=== PATIENT | male | born 1945 | race Caucasian/White ===

== ENCOUNTER 2018-08-04 09:50 | Outpatient (REF) | payer MEDICARE, OTHER, SELFPAY ==
[2018-08-04 13:42] LABS: COMMENT (LAB VIEW ONLY) 61.27 mg/dL; Microalb ug/mg Crea 13.9 ug/mg Cr
== END 2018-08-04 10:10 ==
LOC: NCHCN 09:50
PROVIDERS: PCP Family Medicine; Visit Provider Family Medicine
DX: E11.9 Type 2 diabetes mellitus without complications (principal)
CPT/HCPCS: 82043; 82570

== ENCOUNTER → 2019-05-17 12:29 | Outpatient (BNVA) | payer MEDICARE, OTHER, SELFPAY | PROVIDERS: PCP Family Medicine; Visit Provider Psychiatry & Neurology Neurology | DX: S84.12XA Injury of peroneal nerve at lower leg level, left leg, initial encounter (principal); X58.XXXA Exposure to other specified factors, initial encounter; M21.372 Foot drop, left foot; I10 Essential (primary) hypertension; E11.9 Type 2 diabetes mellitus without complications; Z79.84 Long term (current) use of oral hypoglycemic drugs | CPT/HCPCS: 99204; 99215 ==

== ENCOUNTER 2020-01-18 12:27 | Outpatient (REF) | payer MEDICARE, OTHER, SELFPAY ==
[2020-01-18 15:22] LABS: Anion Gap 11.9 mmol/L (3-11); BUN 15 mg/dL (7-18); CO2 23.1 mmol/L (21.0-32.0); CREATININE 1.08 mg/dL (0.70-1.30); Calcium 8.8 mg/dL (8.5-10.1); Chloride 106 mmol/L (98-107); Glucose 221 mg/dL (74-106); Magnesium 1.8 mg/dL (1.8-2.4); Potassium 4.4 mmol/L (3.5-5.1); Sodium 141 mmol/L (136-145)
== END 2020-01-18 12:47 ==
LOC: NCHCN 12:27
PROVIDERS: PCP Family Medicine; Visit Provider Family Medicine
DX: E11.9 Type 2 diabetes mellitus without complications (principal); I10 Essential (primary) hypertension; I25.10 Atherosclerotic heart disease of native coronary artery without angina pectoris
CPT/HCPCS: 80048; 83735

== ENCOUNTER 2021-09-13 15:13 | Outpatient (REF) | payer MEDICARE, SELFPAY ==
[2021-09-13 16:16] LABS: Anion Gap 12.8 mmol/L (3-11); BUN 25 mg/dL (7-18); CO2 20.2 mmol/L (21.0-32.0); Calcium 8.7 mg/dL (8.5-10.1); Chloride 107 mmol/L (98-107); Glucose 143 mg/dL (74-106); Potassium 4.3 mmol/L (3.5-5.1); Sodium 140 mmol/L (136-145)
[2021-09-13 16:21] LABS: Hemoglobin A1C 6.7 % (<5.7)
== END 2021-09-13 15:14 | disposition home or self-care (01) ==
LOC: NCHCN 15:13
PROVIDERS: PCP Family Medicine; Visit Provider Family Medicine
DX: E11.9 Type 2 diabetes mellitus without complications (principal); I10 Essential (primary) hypertension
CPT/HCPCS: 80048; 83036

== ENCOUNTER 2022-09-08 14:55 | Outpatient (REF) | payer MEDICARE, OTHER, SELFPAY ==
[2022-09-08 15:06] LABS: Anion Gap 11.8 mmol/L (3-11); BUN 20 mg/dL (7-18); CO2 23.2 mmol/L (21.0-32.0); CREATININE 1.5 mg/dL (0.70-1.30); Calcium 8.7 mg/dL (8.5-10.1); Calculated LDL 45 mg/dL (<100); Chloride 101 mmol/L (98-107); Cholesterol 134 mg/dL (<200); Estimated GFR 48.25 (mL/min/1.73m2); HDL Cholesterol 47 mg/dL (40-60); Potassium 4.1 mmol/L (3.5-5.1); Sodium 136 mmol/L (136-145); Triglyceride 212 mg/dL (<150)
[2022-09-08 15:23] LABS: Glucose 559 mg/dL (74-106)
== END 2022-09-08 14:56 | disposition home or self-care (01) ==
LOC: NCHCN 14:55
PROVIDERS: PCP Family Medicine; Visit Provider Family Medicine
DX: E11.9 Type 2 diabetes mellitus without complications (principal); I25.10 Atherosclerotic heart disease of native coronary artery without angina pectoris; E78.5 Hyperlipidemia, unspecified
CPT/HCPCS: 80048; 80061

== ENCOUNTER 2022-12-09 19:54 | Outpatient (REF) | payer MEDICARE, OTHER, SELFPAY ==
[2022-12-09 16:25] LABS: Anion Gap 10.9 mmol/L (3-11); BUN 14 mg/dL (7-18); CO2 21.1 mmol/L (21.0-32.0); Chloride 108 mmol/L (98-107); Estimated GFR 78.49 (mL/min/1.73m2); Glucose 170 mg/dL (74-106); Potassium 3.9 mmol/L (3.5-5.1); Sodium 140 mmol/L (136-145)
== END 2022-12-09 19:55 | disposition home or self-care (01) ==
LOC: NCHCN 19:54
PROVIDERS: PCP Family Medicine; Visit Provider Family Medicine
DX: N28.9 Disorder of kidney and ureter, unspecified (principal)
CPT/HCPCS: 80048

== ENCOUNTER 2023-08-25 14:08 | Emergency (ER) | payer MEDICARE, OTHER, SELFPAY ==
[2023-08-25 14:13] VITALS: BP 145/98; PULSE 92; RESP 16; TEMP 38.1; O2SAT 95
--- NOTE | 2023-08-25 14:30 | DI.RAD_ITS ---
Exam(s) XR CHEST 2V PA LATERAL EXAM: XR CHEST 2V PA LATERAL CLINICAL HISTORY: cough, fever, left post lung wheeze TECHNIQUE: 2D digital imaging was performed. COMPARISON: CR CHEST 2 VIEWS PA,LAT from 12/19/2016 FINDINGS: HEART: Normal size. Coronary artery stent Aorta: Not dilated. PULMONARY VASCULATURE: Normal. LUNGS: Clear. PLEURAL SPACE: No pleural effusion or pneumothorax. BONE:Unremarkable for age. Soft tissues: Unremarkable. IMPRESSION: No acute abnormality. DATA REPOSITORY: RADIATION DOSE DELIVERED:
--- NOTE | 2023-08-25 14:36 | W.ED.GENAD ---
Discharge Plan Disposition Patient Disposition: Home Condition: Improving Discharge Details Chief Complaint: RespSymp Clinical Impression: Cough, Viral illness Primary Care Provider: Brian Cordero ED Provider: Lencho Leal Home Meds and New Rx's Prescriptions: No Action clopidogrel 75 mg tablet 75 mg PO DAILY acetaminophen [Tylenol Extra Strength] 500 MG tablet 500 mg PO PRN isosorbide mononitrate 60 MG tablet extended release 24 hr 60 mg PO DAILY omeprazole 40 MG capsule,delayed release(DR/EC) 40 mg PO DAILY@0730 Qty: 30 atorvastatin [Lipitor] 80 mg tablet 40 mg PO DAILY metformin 500 mg tablet extended release 24hr 850 mg PO BID Jardiance 10 mg tablet 10 mg PO DAILY naproxen sodium [Aleve] 220 mg capsule 220 mg PO BID PRN glipizide 2.5 mg tablet extended release 24hr 2.5 mg PO DAILY metoprolol succinate 50 mg tablet extended release 24 hr 25 mg PO DAILY sucralfate 1 GM tablet 1 gm PO AC & HS Qty: 120 1RF famotidine 40 MG tablet 40 mg PO HS nitroglycerin 0.4 MG tablet, sublingual 0.4 mg Sublingual PRN PRN aspirin 81 MG tablet,chewable 81 mg PO DAILY furosemide 20 MG tablet 20 mg PO PRN PRN Discharge Instructions Instructions: Viral Syndrome (ED), Acute Cough (ED) Additional Instructions: Follow-up closely with your primary care physician. Please return to the emergency department for worsening symptoms. Medical Decision Making 77-year-old male presents with cough over the last several days, fatigue and decreased p.o. intake, coughing so much that he was seeing spots/lights in his visual lópez that have not resolved. Does have nasal congestion and sinus pressure. Patient is alert oriented interactive nonfocal moving all extremities. Speaking full sentences normoxic however does have expiratory wheeze left posterior lung field consider pneumonia versus viral respiratory illness, likely component of viral sinusitis, lower suspicion for encephalitis encephalopathy PE ACS aortic pathology or pneumothorax. Screening x-ray, viral panel, trial of nebs and steroid as well as antipyretic. 16: 44 patient feeling better after medications. Home care instructions and return precautions given HPI General Date/Time Provider Initiated Documentation: 08/25/23 14:14. HPI Narrative: 77-year-old male presents with cough over the last several days, coughing so much that he was briefly seeing spots, denies visual or auditory hallucinations; has had some fatigue and decreased p.o. intake related to this illness. Denies chest pain nausea vomiting or diarrhea. Related Data Home Medications Medication Instructions Recorded Confirmed aspirin 81 mg chewable tablet 81 mg PO DAILY 12/19/16 05/17/19 famotidine 40 mg tablet 40 mg PO HS 12/19/16 05/17/19 furosemide 20 mg tablet 20 mg PO PRN PRN 12/19/16 05/17/19 nitroglycerin 0.4 mg sublingual 0.4 mg sublingual PRN PRN 12/19/16 05/17/19 tablet acetaminophen 500 mg tablet 500 mg PO PRN 02/13/17 05/17/19 (Tylenol Extra Strength) isosorbide mononitrate 60 mg 60 mg PO DAILY 02/13/17 05/17/19 tablet,extended release 24 hr sucralfate 1 gram tablet 1 gm PO AC & HS #120 tabs 02/24/17 05/17/19 omeprazole 40 mg capsule,delayed 40 mg PO DAILY@0730 ##30 03/06/17 05/17/19 release atorvastatin 80 mg tablet (Lipitor) 40 mg PO DAILY 03/18/19 05/17/19 empagliflozin 10 mg tablet 10 mg PO DAILY 03/18/19 05/17/19 (Jardiance) metformin 500 mg tablet,extended 850 mg PO BID 03/18/19 05/17/19 release 24hr (osmotic) clopidogrel 75 mg tablet 75 mg PO DAILY 05/17/19 05/17/19 glipizide 2.5 mg tablet, extended 2.5 mg PO DAILY 07/09/22 release 24 hr metoprolol succinate 50 mg 25 mg PO DAILY 07/09/22 tablet,extended release 24 hr naproxen sodium 220 mg capsule 220 mg PO BID PRN 07/09/22 (Aleve) Previous Rx's Medication Instructions Recorded sucralfate 1 gram tablet 1 gm PO AC & HS #120 tabs 02/24/17 Allergies Allergy/AdvReac Type Severity Reaction Status Date / Time No Known Allergies Allergy Unverified 08/25/23 14:18 General Stated Complaint: RespSymp NIXON: 3 Review of Systems Narrative: Review of Systems Constitutional: negative Eyes: negative ENT: negative Cardiovascular: negative Respiratory: Cough Gastrointestinal: negative : negative Musculoskeletal: negative Skin: negative Neurologic: negative Psych: negative PFSH All Active Problems (Updated 08/25/23 @ 16:45 by Lencho Lael MD) Viral illness (Acute) Cough (Acute) Left foot drop (Acute) Left peroneal nerve injury (Acute) Medical History (Updated 08/25/23 @ 16:45 by Lencho Leal MD) Tubulovillous adenoma (~01/2017) GERD (gastroesophageal reflux disease) Diverticulitis large intestine Hypertension DJD (degenerative joint disease) [place] (myocardial infarction) 2001 Hyperlipidemia Depression Anxiety CAD (coronary artery disease) Hearing impairment DM (diabetes mellitus) Tobacco chew use Surgical History S/P eye surgery bilateral at age 18 cardiac stent 2001 and 2014 EGD - IV Sedation (02/23/17) Colonoscopy - MAC (02/23/17) Social History Smoking/Tobacco Use Status: Current every day Smoking risk assessment performed?: Yes Alcohol Intake: current Drug use: Never Household members: spouse Number of Children: 5 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; Retired Construction/refuse and recycling worker Do you feel safe in your relationship?: Yes Additional Social history: to 4th (>41 years together) Exam Narrative Exam Narrative: Physical Examination General: alert, awake, cooperative, resting comfortably, no acute distress HEENT: normocephalic, atraumatic; PERRL, EOM intact, conjunctiva normal; no nasal discharge; moist mucous membranes, oral and pharyngeal mucosa normal, tolerating secretions Neck: supple, trachea midline; full ROM Chest: normal to inspection Respiratory: normal respiratory effort, speaking in full sentences, mild expiratory wheeze left posterior lung field, clear right lung lópez Cardiac: regular rate, regular rhythm, S1S2 intact, no murmurs rubs or gallops GI: abdomen soft, non-tender, non-distended; no palpable mass or hepatosplenomegaly Skin: no lesions, rashes or trauma appreciated Neuro: AAOx3, normal speech, moving all extremities Psych: Appropriate mood and affect Course Vital Signs Vital signs: Vital Signs Temperature 38.1 C H 08/25/23 14:13 Pulse 92 H 08/25/23 14:13 Respiratory Rate 16 08/25/23 14:13 Blood Pressure 145/98 H 08/25/23 14:13 Pulse Oximetry 95 08/25/23 14:13 Temperature 38.1 C H 08/25/23 14:13 Temperature Source Temporal Artery Scan 08/25/23 14:13 Pulse 92 H 08/25/23 14:13 Respiratory Rate 16 08/25/23 14:13 Respiratory Effort Normal, Non-Labored 08/25/23 14:18 Blood Pressure 145/98 H 08/25/23 14:13 Pulse Oximetry 95 08/25/23 14:13 Oxygen Delivery Method Room Air 08/25/23 14:13 Oxygen Flow Rate 0 08/25/23 14:13 PAWSS Have you Been Recently Intoxicated or Drunk Within the Last 30 days?: No Have you Ever Experienced Previous Episodes of Alcohol Withdrawal?: No Have you ever Experienced Withdrawal Seizures?: No Have you ever Experienced Delirium Tremens(DT)s?: No Have you ever undergone Alcohol Rehabilitation Treatment (i.e, inpt ot outpatient treatment programs)?: No Have you ever Experienced Blackouts?: No Have you ever Combined Alcohol with other Downers within the last 90 days?: No Have you ever Combined Alcohol with any other Substance of Abuse during the last 90 days?: No Result: 0
[2023-08-25] MEDS: Acetaminophen 325 MG TAB 650 MG PO (14:57)
[2023-08-25 14:58] VITALS: PULSE 92; RESP 16; O2SAT 95
[2023-08-25] MEDS: Albuterol 2.5 MG/3 ML INH SOLN VIAL UPD (14:58)
[2023-08-25] MEDS: Dexamethasone 10 MG/ML VIAL PO (14:58)
[2023-08-25 16:54] VITALS: BP 154/52; PULSE 100; RESP 16; TEMP 37.1; TEMP 37.2; O2SAT 95
[2023-08-25 17:09] VITALS: PULSE 100; RESP 16; TEMP 37.2; O2SAT 95
== END 2023-08-25 16:56 | disposition home or self-care (01) ==
PROVIDERS: Emergency Provider Emergency Medicine; PCP Family Medicine
DX: R05.9 Cough, unspecified (principal); B34.9 Viral infection, unspecified
CPT/HCPCS: 87426; 94640; 99283; 71046; 99284; J1100; J7613

== ENCOUNTER 2023-10-12 13:05 | Outpatient (REF) | payer MEDICARE, OTHER, SELFPAY ==
[2023-10-12 15:48] LABS: Hemoglobin A1C 7.4 % (<5.7)
[2023-10-12 15:56] LABS: Anion Gap 12.3 mmol/L (3-11); BUN 19 mg/dL (7-18); CO2 24.7 mmol/L (21.0-32.0); CREATININE 1.2 mg/dL (0.70-1.30); Calcium 9.4 mg/dL (8.5-10.1); Chloride 104 mmol/L (98-107); Estimated GFR 62.67 (mL/min/1.73m2); Glucose 148 mg/dL (74-106); Sodium 141 mmol/L (136-145)
== END 2023-10-12 13:06 | disposition home or self-care (01) ==
LOC: NCHCN 13:05
PROVIDERS: PCP Family Medicine; Visit Provider Family Medicine
DX: E11.9 Type 2 diabetes mellitus without complications (principal)
CPT/HCPCS: 80048; 83036

== ENCOUNTER 2024-04-13 12:00 | Outpatient (REF) | payer MEDICARE, OTHER, SELFPAY ==
[2024-04-14 20:32] LABS: COMMENT (LAB VIEW ONLY) 70.41 mg/dL; Microalb ug/mg Crea 20.7 ug/mg Cr
== END 2024-04-13 12:01 | disposition home or self-care (01) ==
LOC: NCHCN 12:00
PROVIDERS: PCP Family Medicine; Visit Provider Student in an Organized Health Care Education/Training Program
DX: E11.9 Type 2 diabetes mellitus without complications (principal)
CPT/HCPCS: 82043; 82570

== ENCOUNTER 2025-01-02 13:59 | Outpatient (REF) | payer MEDICARE, OTHER, SELFPAY ==
[2025-01-02 16:05] LABS: Anion Gap 14.8 mmol/L (3-11); BUN 21 mg/dL (7-18); CO2 19.2 mmol/L (21.0-32.0); CREATININE 1.1 mg/dL (0.70-1.30); Chloride 106 mmol/L (98-107); Estimated GFR 68.71 (mL/min/1.73m2); Glucose 211 mg/dL (74-106); Potassium 3.9 mmol/L (3.5-5.1); Sodium 140 mmol/L (136-145)
== END 2025-01-02 14:00 | disposition home or self-care (01) ==
LOC: NCHCN 13:59
PROVIDERS: PCP Student in an Organized Health Care Education/Training Program; Visit Provider Student in an Organized Health Care Education/Training Program
DX: E11.9 Type 2 diabetes mellitus without complications (principal)
CPT/HCPCS: 80048

== ENCOUNTER 2025-01-13 00:10 | Outpatient (CLI) | payer MEDICARE, OTHER, SELFPAY ==
--- NOTE | 2025-01-13 09:00 | DI.CT_ITS ---
Exam(s) CT CHEST WO EXAM: CT CHEST WO CLINICAL HISTORY: Multiple lung nodules, R91.8; significant smoking history > 20 years ago. TECHNIQUE: Multi planar reconstructions were performed. CONTRAST MATERIAL: None COMPARISON: CT CT CHEST/ABD/PELVIS W/CONTRAST from 03/25/2024 FINDINGS: CHEST: LUNGS: There is an unchanged 2-3 mm calcified granuloma in the right upper lobe. Two other small sim ilar size nodules in the right upper lobe also remain unchanged.. Another small 2-3 mm nodule in the right middle lobe is unchanged. No new significant focal right lung findings. No pleural effusions . In the opposite-left lung there is a peripherally located left upper lobe nodule measuring 3 mm which is unchanged. There are no new left lung nodules. No infiltrates. No pleural effusions. There are no significant focal findings in trachea and mainstem bronchi. MEDIASTINUM: There is no obvious hilar nor mediastinal adenopathy. Visualized thyroid unremarkable.No obvious axillary adenopathy CARDIAC: Heart size is normal. There is no pericardial effusion.Caliber of the thoracic aorta is wit hin normal limits. VISUALIZED UPPER ABDOMEN:Cholelithiasis evident. There is a E 1.5 cm gallstone noted in the gallblad alhaji neck region. Gallbladder is not overly distended and is not edematous and there is no pericholec ystic fluid. CBD is not dilated. There are no adrenal masses. No splenomegaly. OSSEOUS: No significant osseous lesions.No fractures.. IMPRESSION: 1. Stable appearance of the multiple small benign-appearing nodules in the right lung and solitary 3 millimeter nodule in the left lung. There are no new nodules, infiltrates, nor pleural effusions and there is no intrathoracic adenopathy. 2. Cholelithiasis incidentally noted. RADIATION DOSE DELIVERED: 204.35mGy.cm Total DLP DATA REPOSITORY: All CT scans at this facility are submitted to the National Radiology Data Registry (NRDR) Dose Index Registry (DIR) with the [employer] ([employer]). RADIATION OPTIMIZATION: All CT scans at this facility use at least one of these dose optimization te chniques: automated exposure control; mA and/or kV adjustment per patient size (includes targeted exa ms where dose is matched to clinical indication); or iterative reconstruction.
== END 2025-01-13 00:30 ==
LOC: DI 00:10
PROVIDERS: PCP Student in an Organized Health Care Education/Training Program; Visit Provider Student in an Organized Health Care Education/Training Program
DX: R91.8 Other nonspecific abnormal finding of lung field (principal)
CPT/HCPCS: 71250

== ENCOUNTER 2025-02-20 16:48 | Emergency (ER) | payer MEDICARE, OTHER, SELFPAY ==
[2025-02-20] VITALS (20 sets, daily range): BP systolic 130–159; BP diastolic 53–73; PULSE 18–75; RESP 9–18; TEMP 36.8; O2SAT 95–100
--- NOTE | 2025-02-20 16:45 | RT.EKG_ITS ---
APPROVED REPORT Exam: Resting ECG Reason for Exam: Chest Pain Patient Location: E HR:71 bpm ECG Measurements Heart Rate 71 AXIS OR 172 P 69 QRSd 78 QRS 68 QT 368 T 66 QTc 402 Conclusion Sinus rhythm...normal P axis, V-rate 60- 99 Physician: No STEMI
--- NOTE | 2025-02-20 17:15 | DI.RAD_ITS ---
Exam(s) XR CHEST 2V PA LATERAL EXAM: XR CHEST 2V PA LATERAL CLINICAL HISTORY: chest pain TECHNIQUE: 2D digital imaging was performed of the chest. Two images were obtained. PA and lateral views were obtained. COMPARISON: CR XR CHEST 2V PA LATERAL from 08/25/2023 FINDINGS: MEDIASTINUM: Normal. HEART: Normal. PULMONARY VASCULATURE: Normal. LUNGS: Clear. PLEURAL SPACE: No pleural effusion or pneumothorax. BONE:Within normal limits for the patient's age. OTHER FINDINGS:Normal. IMPRESSION: No acute pulmonary findings. DATA REPOSITORY: RADIATION DOSE DELIVERED:
[2025-02-20 17:29] LABS: Abs Immature Grans 0.06 10^3/uL (0.0-0.06); Absolute Basophil Count 0.07 10^3/uL (0.0-0.2); Absolute Eosinophil Count 0.24 10^3/uL (0.0-0.7); Absolute Lymphocyte Count 1.39 10^3/uL (1.2-3.4); Absolute Monocyte Count 0.44 10^3/uL (0.1-0.8); Absolute Neutrophil Count 4.09 10^3/uL (1.2-6.7); Basophils % 1.1 %; Eosinophils % 3.8 %; HCT 40.1 % (40.0-50.0); HGB 13.8 g/dL (13.5-17.5); Lymphocytes % 22.1 %; MCH 31.3 pg (27.0-33.0); MCHC 34.4 % (32.0-36.0); MCV 91 fL (80-95); MPV 9.6 fL (8.0-11.0); Platelet Count 211 10^3/uL (130-400); RBC 4.41 10^6/uL (4.36-5.78); RDW 13.2 % (11.8-14.1); RDW-SD 43.7 fL; WBC 6.29 10^3/uL (4.4-10.8)
[2025-02-20 17:48] LABS: ALT 23 U/L (16-63); AST 12 U/L (15-37); Albumin 3.9 g/dL (3.4-5.0); Alkaline Phosphatase 112 U/L (46-116); Anion Gap 11.9 mmol/L (3-11); BUN 18 mg/dL (7-18); Bilirubin, Total 0.4 mg/dL (0.2-1.0); CO2 23.1 mmol/L (21.0-32.0); Calcium 8.6 mg/dL (8.5-10.1); Chloride 106 mmol/L (98-107); Estimated GFR 77.04 (mL/min/1.73m2); Glucose 296 mg/dL (74-106); Lipase 35 U/L (<78); Potassium 4.1 mmol/L (3.5-5.1); Sodium 141 mmol/L (136-145); Total Protein 7.2 g/dL (6.4-8.2); Troponin I 5 ng/L (<or=76)
[2025-02-20 17:55] LABS: D-Dimer 285 ng/mlFEU (<500)
[2025-02-20 18:48] LABS: Troponin I 5 ng/L (<or=76)
--- NOTE | 2025-02-20 23:45 | W.ED.GENAD ---
Discharge Plan Disposition Patient Disposition: Home Condition: Stable Discharge Details Clinical Impression: Atypical chest pain Primary Care Provider: Leon Juarez ED Provider: Mora Alvarenga Home Meds and New Rx's Prescriptions: Continued clopidogrel 75 mg tablet 75 mg PO DAILY acetaminophen [Tylenol Extra Strength] 500 MG tablet 500 mg PO PRN isosorbide mononitrate 60 MG tablet extended release 24 hr 60 mg PO DAILY omeprazole 40 MG capsule,delayed release(DR/EC) 40 mg PO DAILY@0730 Qty: 30 atorvastatin [Lipitor] 80 mg tablet 40 mg PO DAILY metformin 500 mg tablet extended release 24hr 500 mg PO BID Jardiance 10 mg tablet 10 mg PO DAILY naproxen sodium [Aleve] 220 mg capsule 220 mg PO BID PRN glipizide 2.5 mg tablet extended release 24hr 10 mg PO DAILY Patient Comments: pt states med was increased from 2.5 to 10 mg metoprolol succinate 50 mg tablet extended release 24 hr 50 mg PO DAILY sucralfate 1 GM tablet 1 gm PO AC & HS Qty: 120 1RF famotidine 40 MG tablet 40 mg PO HS nitroglycerin 0.4 MG tablet, sublingual 0.4 mg Sublingual PRN PRN aspirin 81 MG tablet,chewable 81 mg PO DAILY furosemide 20 MG tablet 20 mg PO PRN PRN Discharge Instructions Instructions: Chest Pain (DC) Additional Instructions: I placed a referral to cardiology at [facility], I recommend a stress test as soon as possible Take Tylenol as needed for pain Follow-up with your doctor tomorrow to be reevaluated this week, they may be able to order the stress test prior to seeing cardiology Should your symptoms become worse or more persistent despite rest, please return to the emergency department immediately Referrals: Leon Juarez [Primary Care Provider, Medicine] - 1 day HPI General Date/Time Provider Initiated Documentation: 02/20/25 17:03. HPI Narrative: 79-year-old male with intermittent chest and back pain for several months, more persistent this week. History of hypertension, hyperlipidemia, and diabetes. Pain more persistent this week, currently pain-free. No exertional component; moved large boxes 2 days ago without discomfort. Brief pain episode at rest today, resolved with deep breath. Incident with riding lawnmower hitting tree branch may have contributed to pain persistence. No illicit substance use, tobacco use, calf pain/swelling, recent surgeries, or long drives. History of two stents (1999, 2004). recalls left-sided chest pain during second stent placement, no exertional component remembered. No cardiology consultations, stress tests, or cardiac catheterizations since. Related Data Home Medications ?Medication ?Instructions ?Recorded ?Confirmed aspirin 81 mg chewable tablet 81 mg PO DAILY 12/19/16 02/20/25 famotidine 40 mg tablet 40 mg PO HS 12/19/16 02/20/25 furosemide 20 mg tablet 20 mg PO PRN PRN 12/19/16 02/20/25 nitroglycerin 0.4 mg sublingual 0.4 mg sublingual PRN PRN 12/19/16 02/20/25 tablet acetaminophen 500 mg tablet 500 mg PO PRN 02/13/17 02/20/25 (Tylenol Extra Strength) isosorbide mononitrate 60 mg 60 mg PO DAILY 02/13/17 02/20/25 tablet,extended release 24 hr sucralfate 1 gram tablet 1 gm PO AC & HS #120 tabs 02/24/17 02/20/25 omeprazole 40 mg capsule,delayed 40 mg PO DAILY@0730 ##30 03/06/17 02/20/25 release atorvastatin 80 mg tablet (Lipitor) 40 mg PO DAILY 03/18/19 02/20/25 empagliflozin 10 mg tablet 10 mg PO DAILY 03/18/19 02/20/25 (Jardiance) metformin 500 mg tablet,extended 500 mg PO BID 03/18/19 02/20/25 release 24hr (osmotic) clopidogrel 75 mg tablet 75 mg PO DAILY 05/17/19 02/20/25 glipizide 2.5 mg tablet, extended 10 mg PO DAILY 07/09/22 02/20/25 release 24 hr metoprolol succinate 50 mg 50 mg PO DAILY 07/09/22 02/20/25 tablet,extended release 24 hr naproxen sodium 220 mg capsule 220 mg PO BID PRN 07/09/22 02/20/25 (Aleve) Previous Rx's ?Medication ?Instructions ?Recorded sucralfate 1 gram tablet 1 gm PO AC & HS #120 tabs 02/24/17 Allergies Allergy/AdvReac Type Severity Reaction Status Date / Time No Known Allergies Allergy Verified 02/20/25 16:58 General Stated Complaint: Chest Pain NIXON: 3 Exam Narrative Exam Narrative: The patient is in no acute distress. Lungs are clear to auscultation. The patient is speaking in complete sentences. There is reproducible chest wall pain. No visible signs of trauma. No peripheral edema. No calf swelling or tenderness. Vital Signs Vitals are stable. Course Vital Signs Vital signs: Vital Signs Temperature 36.8 C 02/20/25 16:49 Pulse 18 L 02/20/25 16:49 Blood Pressure 146/73 H 02/20/25 16:49 Pulse Oximetry 96 02/20/25 16:49 Temperature 36.8 C 02/20/25 16:49 Temperature Source Oral 02/20/25 16:49 Pulse 64 02/20/25 19:24 Pulse Rhythm Regular 02/20/25 17:40 Pulse 65 02/20/25 19:20 Respiratory Rate 17 02/20/25 19:24 Respiratory Effort Normal, Non-Labored 02/20/25 17:40 Respiratory Depth Normal 02/20/25 17:40 Respiratory Pattern Normal 02/20/25 17:40 Blood Pressure 133/57 L 02/20/25 19:15 Blood Pressure Mean 84 02/20/25 19:15 Blood Pressure Position Sitting 02/20/25 17:40 Pulse Oximetry 97 02/20/25 19:24 Oxygen Delivery Method Room Air 02/20/25 17:40 Oxygen Flow Rate 0 02/20/25 17:40 Pain Level 5 02/20/25 16:49 Lab/Test Results Lab/Test Results: Laboratory Tests Range/Units 02/20/25 02/20/25 17:08 18:19 WBC (4.4-10.8) 10^3/uL 6.29 RBC (4.36-5.78) 10^6/uL 4.41 Hgb (13.5-17.5) g/dL 13.8 Hct (40.0-50.0) % 40.1 MCV (80-95) fL 91 MCH (27.0-33.0) pg 31.3 MCHC (32.0-36.0) % 34.4 RDW (11.8-14.1) % 13.2 Plt Count (130-400) 10^3/uL 211 MPV (8.0-11.0) fL 9.6 Immature Gran % % 1.0 Neutrophils % % 65.0 Lymphocytes % % 22.1 Monocytes % % 7.0 Eosinophils % % 3.8 Basophils % % 1.1 Nucleated RBC % (0.0-0.3) % 0.0 Absolute Neutrophils (1.2-6.7) 10^3/uL 4.09 Absolute Lymphocytes (1.2-3.4) 10^3/uL 1.39 Absolute Monocytes (0.1-0.8) 10^3/uL 0.44 Absolute Eosinophils (0.0-0.7) 10^3/uL 0.24 Absolute Basophils (0.0-0.2) 10^3/uL 0.07 D-Dimer (<500) ng/mlFEU 285 Sodium (136-145) mmol/L 141 Potassium (3.5-5.1) mmol/L 4.1 Chloride (98-107) mmol/L 106 Carbon Dioxide (21.0-32.0) mmol/L 23.1 Anion Gap (3-11) mmol/L 11.9 H BUN (7-18) mg/dL 18 Creatinine (0.70-1.30) mg/dL 1.0 Est GFR (CKD-EPI 2020) (mL/min/1.73m2) 77.04 Glucose (74-106) mg/dL 296 H Calcium (8.5-10.1) mg/dL 8.6 Total Bilirubin (0.2-1.0) mg/dL 0.4 AST (15-37) U/L 12 L ALT (16-63) U/L 23 Alkaline Phosphatase (46-116) U/L 112 Troponin I (<or=76) ng/L 5 5 Total Protein (6.4-8.2) g/dL 7.2 Albumin (3.4-5.0) g/dL 3.9 Lipase (<78) U/L 35 Medical Decision Making Results: Two negative troponins. Slightly elevated glucose, no DKA. Chest x-ray: no acute abnormality. Initial Assessment: 79-year-old male with intermittent chest and back pain for several months, more persistent this week. No exertional component. History of two stents, hypertension, hyperlipidemia, diabetes. Pain-free at present. Differential Diagnosis: - Coronary artery disease: History of stents, hypertension, hyperlipidemia. Low suspicion for cardiac nature. Referral to cardiology. Outpatient stress test recommended. - Musculoskeletal pain: Reproducible chest wall pain. Pain onset after head flung backward. No visible trauma. Follow-up with primary care physician. ED Course: - Negative troponins x2 - Diagnostic blood work reassuring - Chest x-ray read by radiology and reviewed, no acute abnormality - Stable vitals, pain-free - Encouraged to follow up with primary care physician tomorrow Final Assessment: Patient presented with intermittent chest and back pain, more persistent this week. Pain-free at present. Negative troponins, reassuring blood work, normal chest x-ray. Low suspicion for cardiac nature. Referral to cardiology for outpatient stress test. Follow-up with primary care physician advised. Clinical Impression: - Musculoskeletal pain - Coronary artery disease Disposition: Discharge: Home. Low suspicion for cardiac nature. Return precautions for new or worsening symptoms. Follow-Up: Primary care physician tomorrow. Referral to cardiology for outpatient stress test. PFSH All Active Problems (Updated 02/20/25 @ 19:18 by SESAR Love) Atypical chest pain (Acute) Left foot drop (Acute) Left peroneal nerve injury (Acute) Medical History (Updated 02/20/25 @ 19:18 by SESAR Love) Tubulovillous adenoma (~01/2017) GERD (gastroesophageal reflux disease) Diverticulitis large intestine Hypertension DJD (degenerative joint disease) [place] (myocardial infarction) 2001 Hyperlipidemia Depression Anxiety CAD (coronary artery disease) Hearing impairment DM (diabetes mellitus) Tobacco chew use Surgical History S/P eye surgery bilateral at age 18 cardiac stent 2001 and 2014 EGD - IV Sedation (02/23/17) Colonoscopy - MAC (02/23/17) Social History Smoking/Tobacco Use Status: Current every day Smoking risk assessment performed?: Yes Alcohol Intake: current Drug use: Never Household members: spouse Number of Children: 5 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
== END 2025-02-20 19:31 | disposition home or self-care (01) ==
PROVIDERS: Emergency Provider Physician Assistant; PCP Student in an Organized Health Care Education/Training Program
DX: R07.89 Other chest pain (principal); I10 Essential (primary) hypertension; Z86.79 Personal history of other diseases of the circulatory system
CPT/HCPCS: 99283 ×2; 36415; 80053; 83690; 93005; 71046; 84484; 85025; 85379; 93010

== ENCOUNTER 2025-03-27 02:07 | Outpatient (CLI) | payer MEDICARE, OTHER, SELFPAY ==
--- NOTE | 2025-03-27 | ETT_ITS ---
APPROVED REPORT Exam: Exercise Treadmill Patient Location: Out-Patient Room/Bed: Stress Nurse: Tere Jimenez RN Ordering Provider:JIMI WILLOUGHBY CORNELL, Contact Number: [phone] BMI: 23.86 Baseline Rhythm: Sinus Bradycardia, PVCs, PACs Indications: atherosclerosis coronary artery w/o angina pectoris Medical History Medical History: GERD, HTN, [place] (2001), HLD, depression, anxiety, CAD, tobacco chew, DM, left foot drop Cardiac Medications: aspirin, atorvastatin, jardiance, famotidine, glipizide, isosorbide monotitrate, metformin, metoprolol succinate, nitroglycerin Allergies: NKA Cardiac Risk Factors: diabetes, HTN, HLD, smoker, CVD Previous Cardiac Procedures: stent () Pretest Chest Pain Characteristics: No chest pain Exercise History: Indeterminate Physical Disabilities: n/a Lung Sounds: Clear to auscultation Heart Sounds: Irregular Stress Test Details Test: Exercise stress testing was performed using a Bar protocol. Rest Stress HR Resting HR Supine: 54 bpm Max Heart Rate (APMHR): 142 bpm Resting HR Standin bpm Target HR (85% APMHR): 121 bpm Max HR Achieved: 124 bpm % of APMHR: 87 Recovery HR: 75 bpm HR response to stress: Normal HR response to stress BP Resting BP Supine: 144/72 mmHg Resting BP Standin/74 mmHg Max BP: 192/72 mmHg Recovery BP: 140/60 mmHg BP response to stress: Normal blood pressure response to stress. ECG Resting ECG: Sinus Bradycardia Ectopy: occasional PACs, frequent PVCs/bigeminy Stress ECG: Sinus Tachycardia ST Change: No significant ST segment changes noted Arrhythmia: rare PAC, occasional PVCs Recovery ECG: Sinus Rhythm Recovery ST Change: No significant ST segment changes noted Recovery Arrhythmia: occasional PACs, frequent PVCs/bigeminy Clinical Reason for Termination: Target HR Achieved Stress Symptoms: Dyspnea Exercise duration: 06 min39 sec Highest Stage Reached: Stage 3: 3.4 mph at 14% grade. Exercise capacity: 8.03 METs Angina Score: None Vega Treadmill Score: 6.2 Rate Pressure Product: 25304 Stress ECG Conclusion 1. Resting electrocardiogram was normal 2. Patient exercised on the Bar protocol completed workload of 8 METS 3. Normal heart rate and blood pressure response to exercise. The patient achieved 87% of maximal predicted heart rate for age 4. There was no electrocardiographic evidence of myocardial ischemia 5. Occasional PVCs were seen Vega Treadmill Score is 6.2 which is Low risk. Stress Test Summary STAGE Time (mins) Speed (mph) Grade (%) HR BP SpO2 SYMPTOMS METS Supine 54 144/72 98 Standing 64 152/74 1 3 1.7 10 94 140/72 97 4.5 2 6 2.5 12 112 190/78 97 mild SOB 7 3 9 3.4 14 114 10 1 min recovery 105 192/72 97 3 min recovery 76 164/60 98 6 min recovery 75 140/60 99 Test stopped due to pt meeting target HR/pt safety on treadmill. Pt c/o mild dyspnea during test. All symptoms resolved by end of recovery. Pt left ambulatory in no acute distress.
== END 2025-03-27 02:27 ==
LOC: DI 02:08
PROVIDERS: PCP Student in an Organized Health Care Education/Training Program; Visit Provider Nurse Practitioner Family
DX: I25.10 Atherosclerotic heart disease of native coronary artery without angina pectoris (principal); R00.1 Bradycardia, unspecified; I49.3 Ventricular premature depolarization; I49.1 Atrial premature depolarization
CPT/HCPCS: 93016; 93018; 93017